=== PATIENT | female | born 1975 | race African-American/Black ===

== ENCOUNTER 2016-06-12 21:39 | Emergency (ER) | payer MEDICAID ==
[~2016-06-12] VITALS: Ht 157.5 cm; Wt 67.1 kg
[~2016-06-12 21:39] MED LIST: HYDR-3580 PO; ZOFR4TAB3 PO
[2016-06-12 21:46] VITALS: BP 117/82; PULSE 83; RESP 16; TEMP 98.5; O2SAT 99
--- NOTE | 2016-06-12 22:16 | PD ---
HPI Chief Complaint: Fall Time Seen by Provider: 22:16 Travel History International Travel<30 days: No Contact w/Intl Traveler<30days: No History of Present Illness HPI 41 year old female presents to the ED for evaluation of neck pain, right-sided shoulder pain and low back pain. Onset today approximately 2 PM after falling at the [employer] ([place]). Patient states she had a wet spot and fell onto her right side. She endorses hitting her head but denies losing consciousness. She endorses pinching sensation of the neck and tingling down the right arm. She denies numbness, tingling, weakness, limitations to range of motion of the extremities. She denies saddle anesthesia or bladder or bowel incontinence. She denies previous back injury. She states that she went home and rested before coming here for treatment today. No treatment attempted at home. PFSH Past Medical History Arthritis: No Asthma: No Autoimmune Disease: No Blood Disorders: No Anxiety: No Depression: No Heart Rhythm Problems: No Cancer: No Cardiovascular Problems: No High Cholesterol: No Chemotherapy: No Chest Pain: No Congestive Heart Failure: No COPD: No Cerebrovascular Accident: No Diabetes: No Diminished Hearing: No Endocrine: No GERD: No Glaucoma: No Genitourinary: No Headaches: No Hepatitis: No Hiatal Hernia: No Hypertension: No Immune Disorder: No Kidney Stones: No Musculoskeletal: No Neurologic: No Psychiatric: No Reproductive: No Respiratory: No Migraines: No Myocardial Infarction: No Radiation Therapy: No Renal Failure: No Seizures: No Sickle Cell Disease: No Sleep Apnea: No Thyroid Disease: No Ulcer: No : 3 Para: 3 Miscarriage: 0 : 0 Tubal Ligation: Yes Past Surgical History Abdominal Surgery: Yes (CSECTION) AICD: No Appendectomy: Yes Arteriovenous Shunt: No Cardiac Surgery: No Section: Yes Cholecystectomy: No Ear Surgery: No Endocrine Surgery: No Eye Surgery: No Genitourinary Surgery: No Gynecologic Surgery: No Insulin Pump: No Joint Replacement: No Oral Surgery: No Pacemaker: No Thoracic Surgery: No Social History Alcohol Use: Yes (RARELY) Tobacco Use: Yes (1/2 PACK DAY) Substance Use: No Allergies-Medications (Allergen,Severity, Reaction): Coded Allergies: Sulfa (Verified Allergy, Severe, HIVES, 12/02/15) Codeine (Verified Allergy, Mild, 12/02/15) Darvocet-N 100 (Verified Allergy, Mild, 12/02/15) Reported Meds & Prescriptions Reported Meds & Active Scripts Active Flexeril (Cyclobenzaprine HCl) 10 Mg Tab 10 Mg PO TID Ibuprofen 800 Mg Tab 800 Mg PO Q8H Zofran ODT (Ondansetron HCl) 4 Mg Tab 4 Mg PO Q6H PRN Reported Hydrocodone/Acetaminophen 7.5 mg/325 mg 1 Tab 1 Tab PO Q4H PRN Review of Systems Except as stated in HPI: all other systems reviewed are Neg Physical Exam Narrative GENERAL: Well-nourished, well-developed black female in no acute distress. Sitting up on the stretcher in no acute distress. SKIN: Warm and dry. Thorough evaluation reveals no edema, ecchymosis, abrasion , or laceration of the skin. HEAD: Normocephalic. Atraumatic. No raccoon eyes or caro sign. No tenderness to palpation of the skull. No bony step-offs. No malocclusion of the teeth. EYES: No scleral icterus. No injection or drainage. PERRLA. EOMI. ENT: Pearly bronson tympanic membrane is bilaterally. Nasal mucosa is moist. Oropharynx without erythema, edema or exudate. NECK: Supple, trachea midline. No JVD or lymphadenopathy. ++ midline tenderness to palpation. Patient retains full, active, range of motion of the neck. Mild tenderness to palpation of the paraspinal musculature. CARDIOVASCULAR: Regular rate and rhythm without murmurs, gallops, or rubs. 2+ DP and radial pulses bilaterally. RESPIRATORY: Breath sounds clear and equal bilaterally. No accessory muscle use. GASTROINTESTINAL: Abdomen soft, non-tender, nondistended. + Bowel sounds MUSCULOSKELETAL: No cyanosis, or edema. Mild tenderness to palpation of the acromioclavicular joint and posterior aspect of the shoulder. No tenderness to palpation or limitations to range of motion of the joints of the upper and lower extremities bilaterally. NEUROLOGICAL: Awake and alert. Cranial nerves II through XII intact. Motor and sensory grossly within normal limits. 5/5 muscle strength in all muscle groups. Normal speech. BACK: Nontender without obvious deformity. No CVA tenderness. No midline tenderness. Data Data Last Documented VS Vital Signs Date Time Temp Pulse Resp B/P Pulse Ox O2 Delivery O2 Flow Rate FiO2 06/13/16 00:27 18 06/12/16 21:46 98.5 83 117/82 99 Orders Shoulder, Complete (>2vws) (06/12/16 22:38) Ice/Cold Pack (06/12/16 22:38) Ct Cerv Spine W/O Contrast (06/12/16 22:38) Cyclobenzaprine (Flexeril) (06/12/16 22:45) Ibuprofen (Motrin) (06/12/16 22:45) MDM Medical Decision Making Medical Screen Exam Complete: Yes Emergency Medical Condition: Yes Differential Diagnosis Cervical strain versus musculoskeletal pain versus acromioclavicular separation versus humeral fracture versus other Narrative Course 41 year old female presents to the ED for evaluation of neck pain, right-sided shoulder pain and low back pain. Onset today approximately 2 PM after falling at the [employer] ([place]). Patient states she had a wet spot and fell onto her right side. She endorses hitting her head but denies losing consciousness. She endorses pinching sensation of the neck and tingling down the right arm. She denies numbness, tingling, weakness, limitations to range of motion of the extremities. She denies saddle anesthesia or bladder or bowel incontinence. She denies previous back injury. Vitals reviewed. Physical exam reveals a nontoxic appearing black female in no acute distress. Exam positive for midline tenderness of the cervical spine and the surrounding musculature as well as tenderness to palpation of the right before meals joint and posterior aspect of the right shoulder. Patient was administered anti-inflammatories and muscle relaxants. Ice pack was applied to the shoulder. The need for radiological imaging of the brain was ruled out by a Syrian CT rules. X-rays of the shoulder unremarkable per radiology read. CT of the neck normal per radiology read. This is musculoskeletal pain following a trip and fall. Patient was provided a short course of anti-inflammatories and muscle relaxants. She is instructed to rest, hydrate, return to normal, gentle activities as tolerated, take medications as prescribed, follow up with the primary care provider. She indicated understanding of the instructions and was amenable to plan of care. She stable and discharged home. Diagnosis Primary Impression: Musculoskeletal pain Referrals: Primary Care Physician Patient Instructions: General Instructions, Musculoskeletal Pain (ED) Additional Instructions: Rest, ice, elevate the extremity. Apply ice no longer than 10-15 minutes per hour a few times a day. 800 mg ibuprofen 3 times a day as prescribed for pain and inflammation. Flexeril 3 times a day as needed for muscle spasm. Do not drive while taking Flexeril. Return to normal, gentle activity as tolerated. Follow-up with primary care provider this week. Return to the ED for any urgent or emergent medical condition. Med/Other Pt SpecificInfo: Prescription(s) given Scripts Cyclobenzaprine (Flexeril)10 Mg Tab10 Mg PO TID #12 TAB Ref 0 Prov:Jerome Lenz MD 06/13/16 Ibuprofen 800 Mg Fhh201 Mg PO Q8H #15 TAB Ref 0 Prov:Jerome Lenz MD 06/13/16 Disposition: 01 DISCHARGE HOME Condition: Stable Yana Adrian Jun 12, 2016 22:16
[2016-06-12] MEDS ORDERED: IBUPROFEN 800 MG TAB PO ONE (22:45)
[2016-06-12] MEDS ORDERED: CYCLOBENZAPRINE HCL 10 MG TAB PO ONE (22:45)
--- NOTE | 2016-06-13 00:16 | RADHPO ---
EXAM DATE/TIME: 06/12/2016 23:56 [facility] COMPARISON: No previous studies available for comparison. INDICATIONS : Right shoulder pain from injury today. MEDICAL HISTORY : None. SURGICAL HISTORY : Tubal ligation. ENCOUNTER: Initial ACUITY: 1 day PAIN SCORE: 9/10 LOCATION: Right Shoulder FINDINGS: Multiple view examination of the right shoulder demonstrates no evidence of fracture or dislocation. The glenohumeral and acromioclavicular joints are maintained. There is normal range of motion betwe en internal and external rotation. Bony mineralization is normal. CONCLUSION: Unremarkable examination of the right shoulder. Adelfo Roman MD on June 13, 2016 at 0:14 Board Certified Radiologist. This report was verified electronically.
--- NOTE | 2016-06-13 00:17 | RADHPO ---
EXAM DATE/TIME: 06/12/2016 23:45 [facility] COMPARISON: No previous studies available for comparison. INDICATIONS : Trauma. Fall. Right neck pain radiating into upper back and right arm. RADIATION DOSE: 26.53 CTDIvol (mGy) MEDICAL HISTORY : None SURGICAL HISTORY : Tubal ligation. ENCOUNTER: Initial ACUITY: 1 day PAIN SCALE: 9/10 LOCATION: Right neck TECHNIQUE: Volumetric scanning of the cervical spine was performed. Multiplanar reconstructions in the sagittal, coronal and oblique axial planes were performed. Using automated exposure control and adjustment o f the mA and/or kV according to patient size, radiation dose was kept as low as reasonably achievable to obtain optimal diagnostic quality images. FINDINGS: VERTEBRAE: Normal vertebral body height. ALIGNMENT: No evidence of subluxation. C2-C3: The bony spinal canal is normal in size. No evidence of disc bulge or herniation. The neural forami na are bilaterally patent. C3-C4: The bony spinal canal is normal in size. No evidence of disc bulge or herniation. The neural forami na are bilaterally patent. C4-C5: The bony spinal canal is normal in size. No evidence of disc bulge or herniation. The neural forami na are bilaterally patent. C5-C6: The bony spinal canal is normal in size. No evidence of disc bulge or herniation. The neural forami na are bilaterally patent. C6-C7: The bony spinal canal is normal in size. No evidence of disc bulge or herniation. The neural forami na are bilaterally patent. C7-T1: The bony spinal canal is normal in size. No evidence of disc bulge or herniation. The neural forami na are bilaterally patent. CONCLUSION: Normal examination. Adelfo Roman MD on June 13, 2016 at 0:14 Board Certified Radiologist. This report was verified electronically.
[2016-06-13] MEDS ORDERED: IBUP800T23 PO (00:20)
[2016-06-13] MEDS ORDERED: CYCL1TAB29 PO (00:20)
[2016-06-13 00:27] VITALS: RESP 18
== END 2016-06-13 00:54 | disposition home or self-care (01) ==
LOC: PHEFT 21:39
DX: M79.1 Myalgia (principal); F17.210 Nicotine dependence, cigarettes, uncomplicated; W01.10XA Fall on same level from slipping, tripping and stumbling with subsequent striking against unspecified object, initial encounter; Y93.9 Activity, unspecified; Y92.512 Supermarket, store or market as the place of occurrence of the external cause; Y99.8 Other external cause status
CPT/HCPCS: 72125; 73030

== ENCOUNTER 2017-06-14 18:36 | Emergency (ER) | payer SELFPAY ==
[~2017-06-14] VITALS: Ht 157.5 cm; Wt 70.0 kg
[~2017-06-14 18:36] MED LIST changes: +CYCL10TA PO; +IBUP1TAB7 PO
[2017-06-14 18:47] VITALS: BP 124/64; PULSE 94; RESP 20; TEMP 98.7; O2SAT 100
[2017-06-14] MEDS ORDERED: IBUP1TAB7 PO (19:08)
[2017-06-14] MEDS ORDERED: CYCL10TA PO (19:08)
--- NOTE | 2017-06-14 19:10 | PD ---
HPI Chief Complaint: Back/ Neck Pain or Injury Time Seen by Provider: 19:05 Travel History International Travel<30 days: No Contact w/Intl Traveler<30days: No Traveled to known affect area: No History of Present Illness HPI 42-year-old female with PMH of chronic back pain presents to the ED for evaluation of approximately 24-hour history of spasming 8/10 pain of the right back and hip. Patient can identify no acute injury. 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 She states that when she woke up this morning the pain was present. She denies fever, chills, nausea, vomiting, numbness, tingling, weakness, limitations to range of motion of the extremities, dysuria, hematuria, vaginal discharge, radiation of the pain, saddle anesthesia, incontinence. She had "a back surgery" in October and has been "pretty much" asymptomatic since then. No treatment attempted at home. PFSH Past Medical History Arthritis: No Asthma: No Autoimmune Disease: No Blood Disorders: No Anxiety: No Depression: No Heart Rhythm Problems: No Cancer: No Cardiovascular Problems: No High Cholesterol: No Chemotherapy: No Chest Pain: No Congestive Heart Failure: No COPD: No Cerebrovascular Accident: No Diabetes: No Diminished Hearing: No Endocrine: No GERD: No Glaucoma: No Genitourinary: No Headaches: No Hepatitis: No Hiatal Hernia: No Hypertension: No Immune Disorder: No Kidney Stones: No Musculoskeletal: No Neurologic: No Psychiatric: No Reproductive: No Respiratory: No Immunizations Current: No Migraines: No Myocardial Infarction: No Radiation Therapy: No Renal Failure: No Seizures: No Sickle Cell Disease: No Sleep Apnea: No Thyroid Disease: No Ulcer: No ?: Not : 3 Para: 3 Miscarriage: 0 : 0 Tubal Ligation: Yes Past Surgical History Abdominal Surgery: Yes (CSECTION) AICD: No Appendectomy: Yes Arteriovenous Shunt: No Cardiac Surgery: No Section: Yes Cholecystectomy: No Ear Surgery: No Endocrine Surgery: No Eye Surgery: No Genitourinary Surgery: No Gynecologic Surgery: No Insulin Pump: No Joint Replacement: No Oral Surgery: No Pacemaker: No Thoracic Surgery: No Social History Alcohol Use: Yes (RARELY) Tobacco Use: Yes (1/2 PACK DAY) Substance Use: No Allergies-Medications (Allergen,Severity, Reaction): Coded Allergies: Sulfa (Sulfonamide Antibiotics) (Unverified Allergy, Severe, HIVES, ) acetaminophen (Unverified Allergy, Mild, 06/14/17) codeine (Unverified Allergy, Mild, 06/14/17) propoxyphene (Unverified Allergy, Mild, 06/14/17) Reported Meds & Prescriptions Reported Meds & Active Scripts Active Ibuprofen 800 Mg Tab 800 Mg PO Q8H Flexeril (Cyclobenzaprine HCl) 10 Mg Tab 10 Mg PO TID Ibuprofen 800 Mg Tab 800 Mg PO Q8H Review of Systems Except as stated in HPI: all other systems reviewed are Neg Physical Exam Narrative GENERAL: Well-nourished, well-developed -[place]ales[place] female in no acute distress. Standing at the bedside, leaning on the table SKIN: Focused skin assessment warm/dry. Well-healed surgical scar in the midline of the lumbar spine. HEAD: Normocephalic. EYES: No scleral icterus. No injection or drainage. NECK: Supple, trachea midline. No JVD or lymphadenopathy. CARDIOVASCULAR: Regular rate and rhythm without murmurs, gallops, or rubs. RESPIRATORY: Breath sounds clear and equal bilaterally. No accessory muscle use. GASTROINTESTINAL: Abdomen soft, non-tender, nondistended. MUSCULOSKELETAL: No cyanosis, or edema. Straight leg raise positive on the left. BACK: No obvious deformity. No CVA tenderness. No midline tenderness. Tender to palpation of the paraspinal musculature in the left lumbar spine and posterior lateral hip. Data Data Last Documented VS Vital Signs Date Time Temp Pulse Resp B/P (MAP) Pulse Ox O2 Delivery O2 Flow Rate FiO2 06/14/17 18:47 98.7 94 20 124/64 (84) 100 Orders Orders Ketorolac Inj (Toradol Inj) (06/14/17 19:15) Orphenadrine Inj (Norflex Inj) (06/14/17 19:15) Ed Discharge Order (06/14/17 19:10) MDM Medical Decision Making Medical Screen Exam Complete: Yes Emergency Medical Condition: Yes Differential Diagnosis Acute on chronic back pain versus sciatica versus muscle spasm versus musculoskeletal pain versus other Narrative Course 42-year-old female with PMH of chronic back pain presents to the ED for evaluation of approximately 24-hour history of spasming 8/10 pain of the right back and hip. 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 She states that when she woke up this morning the pain was present. She denies fever, chills, nausea, vomiting, numbness, tingling, weakness, limitations to range of motion of the extremities, dysuria, hematuria, vaginal discharge, radiation of the pain, saddle anesthesia, incontinence. Vitals reviewed. On exam the patient has tenderness to palpation of the paraspinal musculature in the lumbar spine. There is also tenderness to palpation of the posterior lateral hip. Straight leg raise positive on the left. Exam otherwise unremarkable. This is musculoskeletal pain and muscle spasm. Patient 's administered IM Toradol and Norflex. She is prescribed a short course of anti-inflammatories and muscle relaxants. She is instructed to return to normal , gentle activity as tolerated, return to the ED for worsening symptoms. She asked for and received a note for work. She is stable and discharged home. Diagnosis Primary Impression: Musculoskeletal pain Additional Impression: Muscle spasm Referrals: Primary Care Physician Departure Forms: Tests/Procedures, Work Release Enter return to work date: Jun 17, 2017 Additional Instructions: Rest, hydrate. Resume normal, gentle activities as tolerated. A mixture of rest and activity as best for back pain Take ibuprofen and muscle relaxants as prescribed. Do not drive when taking muscle relaxants as this can make you drowsy. Applying ice or heat to areas with sore muscles may help to improve your pains. Do not apply ice/ heat for longer than 20 m/h. Follow-up with your primary care provider. Return to the ED for any urgent or emergent medical condition. Med/Other Pt SpecificInfo: Prescription(s) given Scripts Ibuprofen (Ibuprofen) 800 Mg Tab 800 MG PO Q8H, #15 TAB 0 Refills Prov: Tab Steward MD 06/14/17 Cyclobenzaprine (Flexeril) 10 Mg Tab 10 MG PO TID for Muscle Spasm, #15 TAB 0 Refills Prov: Tab Steward MD 06/14/17 Disposition: 01 DISCHARGE HOME Condition: Stable Yana Adrian Jun 14, 2017 19:10
[2017-06-14] MEDS ORDERED: KETOROLAC TROMETHAMINE 60 MG/2 ML (IM) VIAL IM ONE (19:15)
[2017-06-14] MEDS ORDERED: ORPHENADRINE INJ 60 MG/2 ML AMP IM ONE (19:15)
== END 2017-06-14 19:27 | disposition home or self-care (01) ==
LOC: NEPK 18:36
DX: M79.1 Myalgia (principal)
CPT/HCPCS: 96372; 99283; J1885; J2360

== ENCOUNTER 2017-09-10 21:23 | Emergency (ER) | payer SELFPAY ==
[~2017-09-10] VITALS: Ht 157.5 cm; Wt 64.0 kg
[~2017-09-10 21:23] MED LIST changes: -HYDR-3580 PO; -ZOFR4TAB3 PO
[2017-09-10 21:40] VITALS: BP 109/68; PULSE 82; RESP 16; TEMP 98.4; O2SAT 100
[2017-09-11] MEDS ORDERED: GABA300C5 PO (00:06)
[2017-09-11] MEDS ORDERED: NAPR500T2 PO (00:06)
== END 2017-09-10 23:06 | disposition left against medical advice (07) ==
LOC: NED 21:23
DX: Z53.21 Procedure and treatment not carried out due to patient leaving prior to being seen by health care provider (principal)
CPT/HCPCS: 99281

== ENCOUNTER 2017-09-10 23:32 | Emergency (ER) | payer MEDICAID ==
[~2017-09-10] VITALS: Ht 157.5 cm; Wt 74.1 kg
[2017-09-10 23:39] VITALS: BP 119/71; PULSE 75; RESP 18; TEMP 98; O2SAT 100
[2017-09-11] MEDS ORDERED: GABA300C5 PO (00:06)
[2017-09-11] MEDS ORDERED: NAPR500T2 PO (00:06)
--- NOTE | 2017-09-11 00:06 | PD ---
HPI Chief Complaint: Pain: Acute or Chronic Time Seen by Provider: 23:57 Travel History International Travel<30 days: No Contact w/Intl Traveler<30days: No History of Present Illness HPI This is a 42-year-old female who presents to the emergency department with low back pain, constant, sharp and stabbing that radiates down her right leg with no associated numbness or weakness. She has been having this pain for 2 months. She had back surgery and ever since then she has been having intermittent pain but tonight it was unbearable and it kept her from sleeping. She denies any fevers or chills and has no history of IV drug use. She says in the past she is taking hydrocodone and oxycodone for her pain but they make her sick. She denies any loss of her bowels or bladder. PFSH Past Medical History Arthritis: No Asthma: No Autoimmune Disease: No Blood Disorders: No Anxiety: No Depression: No Heart Rhythm Problems: No Cancer: No Cardiovascular Problems: No High Cholesterol: No Chemotherapy: No Chest Pain: No Congestive Heart Failure: No COPD: No Cerebrovascular Accident: No Diabetes: No Diminished Hearing: No Endocrine: No Gastrointestinal Disorders: No GERD: No Glaucoma: No Genitourinary: No Headaches: No Hepatitis: No Hiatal Hernia: No Heparin Induced Thrombocytopen: No Hypertension: No Immune Disorder: No Implanted Vascular Access Dvce: No Kidney Stones: No Musculoskeletal: No Neurologic: No Psychiatric: No Reproductive: No Respiratory: No Immunizations Current: No Migraines: No Myocardial Infarction: No Radiation Therapy: No Renal Failure: No Seizures: No Sickle Cell Disease: No Sleep Apnea: No Thyroid Disease: No Ulcer: No : 3 Para: 3 Miscarriage: 0 : 0 Tubal Ligation: Yes Past Surgical History Abdominal Surgery: Yes (CSECTION) AICD: No Appendectomy: Yes Arteriovenous Shunt: No Cardiac Surgery: No Section: Yes Cholecystectomy: No Ear Surgery: No Endocrine Surgery: No Eye Surgery: No Genitourinary Surgery: No Gynecologic Surgery: No Insulin Pump: No Joint Replacement: No Neurologic Surgery: No Oral Surgery: No Pacemaker: No Thoracic Surgery: No Other Surgery: No Social History Alcohol Use: Yes (RARELY) Tobacco Use: Yes (1/2 PACK DAY) Substance Use: No Allergies-Medications (Allergen,Severity, Reaction): Coded Allergies: Sulfa (Sulfonamide Antibiotics) (Unverified Allergy, Severe, HIVES, ) acetaminophen (Unverified Allergy, Mild, 09/11/17) codeine (Unverified Allergy, Mild, 09/11/17) propoxyphene (Unverified Allergy, Mild, 09/11/17) Reported Meds & Prescriptions Reported Meds & Active Scripts Active Ibuprofen 800 Mg Tab 800 Mg PO Q8H Flexeril (Cyclobenzaprine HCl) 10 Mg Tab 10 Mg PO TID Ibuprofen 800 Mg Tab 800 Mg PO Q8H Review of Systems Except as stated in HPI: all other systems reviewed are Neg Physical Exam Narrative GENERAL:Well appearing, no acute distress SKIN: Focused skin assessment warm and dry. HEAD: Atraumatic. Normocephalic. EYES: Pupils equal and round. No injection or drainage. ENT: Moist mucous membranes NECK: Trachea midline. CARDIOVASCULAR: Regular rate and rhythm. No murmur appreciated. RESPIRATORY: Clear to auscultation. Breath sounds equal bilaterally. GASTROINTESTINAL: Abdomen soft, non-tender, nondistended. MUSCULOSKELETAL: Pain with straight leg raise on the right. NEUROLOGICAL: Awake and alert. No obvious cranial nerve deficits. 5 out of 5 strength in the bilateral lower extremities. PSYCHIATRIC: Appropriate mood and affect; insight and judgment normal. Data Data Last Documented VS Vital Signs Date Time Temp Pulse Resp B/P (MAP) Pulse Ox O2 Delivery O2 Flow Rate FiO2 09/10/17 23:39 98.0 75 18 119/71 (87) 100 MDM Medical Decision Making Medical Screen Exam Complete: Yes Emergency Medical Condition: Yes Differential Diagnosis Sciatica, strain, cauda equina syndrome Narrative Course This is a 42-year-old female who presents to the emergency department with lumbosacral radiculopathy. She has no red flag symptoms for cauda equina syndrome. She will be treated with anti-inflammatories and gabapentin given her neuropathic pain. I think she can safely be discharged home and I do not think she requires any imaging at this time. Diagnosis Primary Impression: Sciatica Qualified Codes: M54.31 - Sciatica, right side Patient Instructions: General Instructions Additional Instructions: If you develop weakness of your legs, difficulty walking, numbness of your legs or your genital or rectal area, loss of your bowel or bladder, or difficulty urinating return to the emergency department immediately. Followup with your primary care physician in one week if your symptoms have not improved. Med/Other Pt SpecificInfo: Prescription(s) given Scripts Gabapentin (Gabapentin) 300 Mg Cap 300 MG PO TID, #90 CAP 0 Refills Prov: Kendra Patel MD 09/11/17 Naproxen (Naproxen) 500 Mg Tab 500 MG PO BID Y for PAIN SCALE 4 TO 10, #20 TAB 0 Refills Prov: Kendra Patel MD 09/11/17 Disposition: 01 DISCHARGE HOME Condition: Stable Kendra Patel MD Sep 11, 2017 00:06
[2017-09-11] MEDS ORDERED: KETOROLAC TROMETHAMINE 60 MG/2 ML (IM) VIAL IM ONE (00:15)
== END 2017-09-11 00:32 | disposition home or self-care (01) ==
LOC: PHED 23:32
DX: M54.41 Lumbago with sciatica, right side (principal); Z72.0 Tobacco use
CPT/HCPCS: 96372; 99283; J1885